=== PATIENT | male | born 1935 | race Caucasian/White ===

== ENCOUNTER 2017-03-20 19:18 | Emergency (ER) | payer MEDICARE, OTHER ==
[2017-03-20 19:20] VITALS: BP 121/62
[2017-03-20] MEDS ORDERED: IV NORMAL SALINE 1,000ML 1,000 ML IV SCH (19:36)
[2017-03-20] MEDS ORDERED: KETOROLAC 15 MG/ML VIAL. IV ONE (19:45)
[2017-03-20] MEDS ORDERED: 0.9 % SODIUM CHLORIDE 10 ML DISP.SYRIN. IV PRN (19:45)
[2017-03-20] MEDS ORDERED: diazePAM 5 MG TABLET PO ONE (19:45)
--- NOTE | 2017-03-20 19:46 | PHYS DOC ---
Past History Past Medical History: A-Fib, High Cholesterol, Heart Disease, Hypertension Past Surgical History: Cholecystectomy Additional Past Surgical Histo: hernia repair, Smoking: Non-smoker Alcohol Use: None Adult General Chief Complaint Chief Complaint: BACK PAIN OR INJURY HPI HPI Disposition 82-year-old male with a known history of atrial fibrillation on xaleto, hypertension, hyperlipidemia, benign prostatic hyperplasia, and chronic narcotic medications for back pain presents with back pain began spontaneously while at dinner. About half an hour prior to arrival patient was sitting at dinner in a restaurant when he had sudden onset of sharp stabbing pain between shoulder blades with some radiation down to the lower lumbar spine patient denies any numbness and tingling, denies any bowel or bladder incontinence, denies any UTI symptoms, denies any fevers, chills, lightheadedness or dizziness he's had some nausea and mild tenderness to palpation in the right lower quadrant. Patient denies any direct trauma, denies any weakness in his lower legs or prior history of the same. Although he is on chronic Nucynta for back pain patient denies being chronic back pain patient. Patient denies any prior transportation to his back, denies any weight loss, night sweats or prior history of cancer. he was given 100 of fentanyl by EMS in route he is relatively sleepy but responsive on exam Differential diagnoses of concern upon arrival CRAFTI Cauda Equina Renal Stone AAA ruptured Fracture Tumor (TB, metastatic disease) Infection UTI, pyelonephritis, epidural abscess. Patient's spine symptoms have stabilized while they have been evaluated in the department and are appropriate for outpatient work up. No evidence of cauda equina, cord compression, infiltrative, or infectious etiology. Review of Systems Review of Systems Constitutional: Denies fever or chills [] Eyes: Denies change in visual acuity, redness, or eye pain [] HENT: Denies nasal congestion or sore throat [] Respiratory: Denies cough or shortness of breath [] Cardiovascular: No additional information not addressed in HPI [] GI: he is having some mild abdominal pain the right lower quadrant with mild nausea but no almond diarrhea loose stools or constipation. Also does not have any blood in his stools : Denies dysuria or hematuria [] Musculoskeletal: he does complain of.back pain Integument: Denies rash or skin lesions [] Neurologic: Denies headache, focal weakness or sensory changes [] Endocrine: Denies polyuria or polydipsia [] All other systems were reviewed and found to be within normal limits, except as documented in this note. Physical Exam Physical Exam Constitutional: Well developed, well nourished, no acute distress, non-toxic appearance. [] HENT: Normocephalic, atraumatic, bilateral external ears normal, oropharynx moist, no oral exudates, nose normal. [] Eyes: PERRLA, EOMI, conjunctiva normal, no discharge. [] Neck: Normal range of motion, no tenderness, supple, no stridor. [] Cardiovascular:Heart rate regular rhythm, no murmur [] Lungs & Thorax: Bilateral breath sounds clear to auscultation [] Abdomen: Bowel sounds normal, soft, no tenderness, no masses, no pulsatile masses. [] Skin: Warm, dry, no erythema, no rash. [] Back: She has significant tenderness over the rhomboid major rhomboid minor the distal portion of the T-spine over T11-T12 and L1-L2 with no real tenderness of the midline no obvious deformity no redness no swelling no warmth to touch. Patient has have reproducible pain on examination. Over the erector spinae muscles of the lumbar spine. Extremities: No tenderness, no cyanosis, no clubbing, ROM intact, no edema. [] Patient has normal sensation to light touch and proprioception, great strength to resistance +5 patient has brisk peripheral pulses was 2 brisk peripheral capillary refill +2 Neurologic: Alert and oriented X 3, normal motor function, normal sensory function, no focal deficits noted. [] Psychologic: Affect normal, judgement normal, mood normal. [] EKG EKG EKG treated at 7:26 PM 03/20/2017 read by me shows no irregular irregular rhythm this is chronic age or fibrillation with a RR prime in lead 2 [was block right ventricular hypertrophy there is a T-wave inversion in the inferior leads which is not likely new. This is an abnormal EKG patient's QRS width is 140, QTC is 478 which is also mildly prolonged.[] Radiology/Procedures Radiology/Procedures [] [address] [address] IMAGING REPORT Signed PATIENT: TALON LOVE ACCOUNT: [id number] : 1935 LOCATION: ER AGE: 82 SEX: M EXAM STATUS: PRE ER ORD. PHYSICIAN: TEO SOLIMAN MD REASON: back pain PROCEDURE: CT ABDOMEN PELVIS WO CONTRAST CT thoracic spine without contrast. CT lumbar spine without contrast. CT abdomen and pelvis without contrast. HISTORY: Right flank pain, right lower quadrant abdominal pain, right-sided back pain, low back pain, bilateral leg coagulopathy. TECHNIQUE: Helical noncontrast CT imaging of the thoracic spine, lumbar spine, abdomen and pelvis was acquired. CT thoracic spine findings: Very mild S-shaped thoracic spine scoliosis. There is minimal irregularity of the T6 vertebral superior and inferior endplates with 10 percent height loss no lucent fracture cleft evident or bony sclerosis. No unstable fracture. No spondylolysis. No lytic or sclerotic bone lesion. Chronic right lateral rib deformities. Multilevel disc height loss, mild endplate osteophytes and endplate Schmorl's nodes. Disc bulge may contribute to spinal canal stenosis at T10-T11. Coronary calcified plaque. Minimal left greater than right dependent pleural effusions. IMPRESSION: 1. Age-indeterminate mild compression deformity of the T6 vertebral body. This is likely chronic. If there is clinical suspicion of acute fracture at this level then consider further assessment with MR imaging. 2. Thoracic disc disease as described above. CT lumbar spine findings: Lumbar vertebral body height and alignment intact. No fracture. No spondylolysis. Multilevel posterior disc height loss, disc bulges and posterior element overgrowth with spinal canal and neural foraminal stenoses, with probable severe spinal canal stenosis at L4-L5. Paraspinal tissues unremarkable. IMPRESSION: No acute osseous injury of the lumbar spine. Lumbar disc disease as described above. CT abdomen findings: Mild dependent lower lobe atelectasis and pleural effusions. Cholecystectomy. Fatty pancreas. 2 mm left renal calculus. IVC filter. Bilateral renal fluid density cyst with densities measuring less than 10 units largest measuring 3 cm. No ureteral calculi or hydronephrosis. There may be a 1 cm hypodense possibly cystic lesion of the inferior pancreas head and uncinate image 55. Spleen, adrenals and liver are unremarkable. Diffuse colic diverticulosis. No bowel obstruction or inflammatory change. Appendix is negative. No abdominal fluid. Aortoiliac artery calcified plaque. Pelvis findings: There is a 1 cm suspected left bladder wall nodule image 119. No bladder calculi. Inferior anorectal resection with suture anastomosis. Prostate and bones unremarkable. No pelvic fluid. IMPRESSION: 1. No acute process in the abdomen or pelvis. Appendix is negative. 2. Nonobstructing 2 mm left renal calculus. 3. Suspected 1 cm nodule of the left bladder wall a urothelial malignancy is a possibility. 4. Possible 1 cm cystic lesion of the head of the pancreas. 5. Bilateral renal cysts. Exposure: One or more of the following individualized dose reduction techniques were utilized for this examination: 1. Automated exposure control 2. Adjustment of the mA and/or kV according to patient size 3. Use of iterative reconstruction technique Electronically signed by: Melva Bunch MD (03/20/2017 8:38 PM) [facility] DICTATED AND SIGNED BY: MELVA BUNCH MD DATE: 03/20/172023 CC: TEO SOLIMAN MD ~ Course & Med Decision Making Course & Med Decision Making Pertinent Labs and Imaging studies reviewed. (See chart for details) he presents with nontraumatic back pain and right lower quadrant abdominal pain with nausea. Differential diagnosis includes but not limited to ruptured AAA, epidural abscess, epidural hematoma, dissection, kidney stone, UTI, pyonephritis , localized compression fracture or trauma from a metastatic disease and cancer. [] As a T6 compression fracture looks old in nature. There is nothing new injury to his T-spine or lumbar spine there is some spinal stenosis and disc bulge at T11-T12 which may be contributing to his symptoms, patient has Scheduled aorta but no evidence of dissection. Patient has a cyst or small mass within the bladder wall that may be a malignancy and I'll pass along to family at the bedside. Patient's urinalysis is still pending as he is not. Submitted a sample given to dehydration. CBC is unremarkable, patient's CMP is unremarkable, patient's troponin is negative proBNP is only 647 patient's lipase is normal. Laboratory Tests Test 03/20/17 19:47 White Blood Count 8.9 x10^3/uL (4.0-11.0) Red Blood Count 4.63 x10^6/uL (4.30-5.70) Hemoglobin 13.5 g/dL (13.0-17.5) Hematocrit 41.4 % (39.0-53.0) Mean Corpuscular Volume 89 fL (79-100) Mean Corpuscular Hemoglobin 29 pg (25-35) Mean Corpuscular Hemoglobin Concent 33 g/dL (31-37) Red Cell Distribution Width 14.6 % (11.5-14.5) H Platelet Count 211 x10^3/uL (140-400) Neutrophils (%) (Auto) 72 % (31-73) Lymphocytes (%) (Auto) 16 % (24-48) L Monocytes (%) (Auto) 9 % (0-9) Eosinophils (%) (Auto) 1 % (0-3) Basophils (%) (Auto) 2 % (0-3) Neutrophils # (Auto) 6.4 x10^3uL (1.8-7.7) Lymphocytes # (Auto) 1.4 x10^3/uL (1.0-4.8) Monocytes # (Auto) 0.8 x10^3/uL (0.0-1.1) Eosinophils # (Auto) 0.1 x10^3/uL (0.0-0.7) Basophils # (Auto) 0.1 x10^3/uL (0.0-0.2) Sodium Level 143 mmol/L (136-145) Potassium Level 3.3 mmol/L (3.5-5.1) L Chloride Level 107 mmol/L (98-107) Carbon Dioxide Level 24 mmol/L (21-32) Anion Gap 12 (6-14) Blood Urea Nitrogen 13 mg/dL (8-26) Creatinine 0.9 mg/dL (0.7-1.3) Estimated GFR (Cockcroft-Gault) 81.0 Glucose Level 104 mg/dL (70-99) H Calcium Level 8.9 mg/dL (8.5-10.1) Magnesium Level 2.1 mg/dL (1.8-2.4) Total Bilirubin 0.3 mg/dL (0.2-1.0) Direct Bilirubin 0.1 mg/dL (0.0-0.2) Aspartate Amino Transferase (AST) 21 U/L (15-37) Alanine Aminotransferase (ALT) 18 U/L (16-63) Alkaline Phosphatase 71 U/L (46-116) Creatine Kinase 103 U/L (39-308) Creatine Kinase MB (Mass) 0.7 ng/mL (0.0-3.6) Creatine Kinase MB Relative Index 0.7 % (0-4) Troponin I Quantitative < 0.017 ng/mL (0-0.055) CZ-Mvm-P-Type Natriuretic Peptide 614 pg/mL (0-449) H Total Protein 7.0 g/dL (6.4-8.2) Albumin 3.1 g/dL (3.4-5.0) L Lipase 148 U/L (73-393) Is on the differential diagnosis of nontraumatic back pain I believe successfully ruled out AAA, acute compression fracture of the lumbar T-spine, epidural abscess, epidural hematoma based on symptoms, UTI, pyelonephritis, intra-abdominal catastrophe causing referred pain to the retroperitoneal area, doubt cauda equina syndrome, doubt pancreatitis. Patient does have a mass within the bladder wall that is concerned for possible cancer. I will pass this information along to family. Family at the bedside given patient's condition and his pain I encouraged him to follow-up with his primary care doctor for other modalities of treatment other than narcotics. As it may increase patient's fall risk. Considering the fact he is on a blood thinning medication want to avoid falls at all costs. discharge: I've spoken with the patient and/or caregivers. I've explained the patient's condition, diagnosis and treatment plan based on information available to me at this time. I've answered the patient's and/or caregivers questions and addressed any concerns. The patient and/or caregivers have a good understanding the patient's diagnosis, condition and treatment plan as can be expected at this point. Vital signs have been stabilized. The patient's condition is stable for discharge from the emergency department. The patient will pursue further outpatient evaluation with her primary care provider or other designated consulting physician as outlined in the discharge instructions. Patient and/or caregivers are agreeable to this plan of care and follow-up instructions have been explained in detail. The patient and/or caregivers have received these instructions in written format and expressed understanding of these discharge instructions. The patient and her caregivers are aware that if any significant change in condition or worsening of symptoms should prompt him to immediately return to this of the closest emergency department. If an emergent department is not readily available I would encourage him to call 911. Elmer Disclaimer Dragdangelo Disclaimer This electronic medical record was generated, in whole or in part, using a voice recognition dictation system. Departure Departure: Impression: Primary Impression: Hypertension Additional Impressions: Back pain Closed wedge compression fracture of T6 vertebra Bladder mass Disposition: 01 HOME, SELF-CARE Condition: STABLE Patient Instructions: Back Pain, Adult, Chronic Back Pain, Hypertension Additional Instructions: discharge: I've spoken with the patient and/or caregivers. I've explained the patient's condition, diagnosis and treatment plan based on information available to me at this time. I've answered the patient's and/or caregivers questions and addressed any concerns. The patient and/or caregivers have a good understanding the patient's diagnosis, condition and treatment plan as can be expected at this point. Vital signs have been stabilized. The patient's condition is stable for discharge from the emergency department. The patient will pursue further outpatient evaluation with her primary care provider or other designated consulting physician as outlined in the discharge instructions. Patient and/or caregivers are agreeable to this plan of care and follow-up instructions have been explained in detail. The patient and/or caregivers have received these instructions in written format and expressed understanding of these discharge instructions. The patient and her caregivers are aware that if any significant change in condition or worsening of symptoms should prompt him to immediately return to this of the closest emergency department. If an emergent department is not readily available I would encourage him to call 911. Make sure that you follow-up with your primary care doctor for referral to urology to continue investigation of the mass found in the bladder wall today on the CAT scan. This could represent cancer I would advise that you follow-up sooner than later with your studies in hand Scripts Ibuprofen (MOTRIN IB) 200 Mg Tablet 200 MG PO QID for 7 Days, #28 TAB Prov: TEO SOLIMAN MD 03/20/17 Diazepam (VALIUM) 5 Mg Tablet 5 MG PO TID for 5 Days, #15 TAB Please use one tablet every 8 hours as needed for muscle spasms. Do not drink alcohol or use other narcotics with this medication. Prov: TEO SOLIMAN MD 03/20/17 Problem Qualifiers TEO SOLIMAN MD Mar 20, 2017 19:46
[2017-03-20 20:08] LABS: BASO # 0.1 x10^3/uL (0.0-0.2); BASO % 2 % (0-3); EOS # 0.1 x10^3/uL (0.0-0.7); EOS % 1 % (0-3); HEMATOCRIT 41.4 % (39.0-53.0); HEMOGLOBIN 13.5 g/dL (13.0-17.5); LYMPH # 1.4 x10^3/uL (1.0-4.8); LYMPH % 16 % (24-48); MEAN CORPUSCULAR HEMOGLOBIN 29 pg (25-35); MEAN CORPUSCULAR HGB CONC 33 g/dL (31-37); MEAN CORPUSCULAR VOLUME 89 fL (79-100); MONO # 0.8 x10^3/uL (0.0-1.1); MONO % 9 % (0-9); NEUT # 6.4 x10^3uL (1.8-7.7); NEUT % 72 % (31-73); PLATELET COUNT 211 x10^3/uL (140-400); RED BLOOD COUNT 4.63 x10^6/uL (4.30-5.70); RED CELL DISTRIBUTION WIDTH 14.6 % (11.5-14.5); WHITE BLOOD COUNT 8.9 x10^3/uL (4.0-11.0)
[2017-03-20 20:35] LABS: ALBUMIN 3.1 g/dL (3.4-5.0); CALCIUM 8.9 mg/dL (8.5-10.1); CREATININE 0.9 mg/dL (0.7-1.3); DIRECT BILIRUBIN 0.1 mg/dL (0.0-0.2); MAGNESIUM 2.1 mg/dL (1.8-2.4); POTASSIUM 3.3 mmol/L (3.5-5.1); TOTAL BILIRUBIN 0.3 mg/dL (0.2-1.0)
--- NOTE | 2017-03-20 20:41 | RAD ---
CT thoracic spine without contrast. CT lumbar spine without contrast. CT abdomen and pelvis without contrast. HISTORY: Right flank pain, right lower quadrant abdominal pain, right-sided back pain, low back pain, bilateral leg coagulopathy. TECHNIQUE: Helical noncontrast CT imaging of the thoracic spine, lumbar spine, abdomen and pelvis was acquired. CT thoracic spine findings: Very mild S-shaped thoracic spine scoliosis. There is minimal irregularity of the T6 vertebral superior and inferior endplates with 10 percent height loss no lucent fracture cleft evident or bony sclerosis. No unstable fracture. No spondylolysis. No lytic or sclerotic bone lesion. Chronic right lateral rib deformities. Multilevel disc height loss, mild endplate osteophytes and endplate Schmorl's nodes. Disc bulge may contribute to spinal canal stenosis at T10-T11. Coronary calcified plaque. Minimal left greater than right dependent pleural effusions. IMPRESSION: 1. Age-indeterminate mild compression deformity of the T6 vertebral body. This is likely chronic. If there is clinical suspicion of acute fracture at this level then consider further assessment with MR imaging. 2. Thoracic disc disease as described above. CT lumbar spine findings: Lumbar vertebral body height and alignment intact. No fracture. No spondylolysis. Multilevel posterior disc height loss, disc bulges and posterior element overgrowth with spinal canal and neural foraminal stenoses, with probable severe spinal canal stenosis at L4-L5. Paraspinal tissues unremarkable. IMPRESSION: No acute osseous injury of the lumbar spine. Lumbar disc disease as described above. CT abdomen findings: Mild dependent lower lobe atelectasis and pleural effusions. Cholecystectomy. Fatty pancreas. 2 mm left renal calculus. IVC filter. Bilateral renal fluid density cyst with densities measuring less than 10 units largest measuring 3 cm. No ureteral calculi or hydronephrosis. There may be a 1 cm hypodense possibly cystic lesion of the inferior pancreas head and uncinate image 55. Spleen, adrenals and liver are unremarkable. Diffuse colic diverticulosis. No bowel obstruction or inflammatory change. Appendix is negative. No abdominal fluid. Aortoiliac artery calcified plaque. Pelvis findings: There is a 1 cm suspected left bladder wall nodule image 119. No bladder calculi. Inferior anorectal resection with suture anastomosis. Prostate and bones unremarkable. No pelvic fluid. IMPRESSION: 1. No acute process in the abdomen or pelvis. Appendix is negative. 2. Nonobstructing 2 mm left renal calculus. 3. Suspected 1 cm nodule of the left bladder wall a urothelial malignancy is a possibility. 4. Possible 1 cm cystic lesion of the head of the pancreas. 5. Bilateral renal cysts. Exposure: One or more of the following individualized dose reduction techniques were utilized for this examination: 1. Automated exposure control 2. Adjustment of the mA and/or kV according to patient size 3. Use of iterative reconstruction technique Electronically signed by: Param Bunch MD (03/20/2017 8:38 PM) [facility]
[2017-03-20] MEDS ORDERED: IBUP200T44 PO (21:17)
[2017-03-20] MEDS ORDERED: DIAZ5TAB PO (21:17)
[2017-03-20] MEDS ORDERED: HYDROmorphone PF 1 MG/ML DISP.SYRIN IV ONE (21:30)
[2017-03-20] MEDS ORDERED: HYDROmorphone PF 2 MG/ML VIAL IV ONE (21:45)
== END 2017-03-20 21:40 | disposition home or self-care (01) ==
LOC: ER 19:18
DX: S22.050A Wedge compression fracture of T5-T6 vertebra, initial encounter for closed fracture (principal); I11.9 Hypertensive heart disease without heart failure; N32.9 Bladder disorder, unspecified; M54.5 Low back pain; E78.00 Pure hypercholesterolemia, unspecified; I48.91 Unspecified atrial fibrillation; Z90.49 Acquired absence of other specified parts of digestive tract; X58.XXXA Exposure to other specified factors, initial encounter; Y93.89 Activity, other specified; Y99.8 Other external cause status; Y92.89 Other specified places as the place of occurrence of the external cause
CPT/HCPCS: 36415; 72128; 72131; 74176; 80048; 80076; 82553; 83690; 83735; 83880; 84443; 84484; 85025; 96361; 96374; 96375; 99285; J1170; J1885; J7030